=== PATIENT | male | born 1970 | race Hispanic/Latino ===

== ENCOUNTER 2017-04-04 09:43 | Emergency (ER) | payer MEDICAID, OTHER ==
[2017-04-04 09:44] VITALS: BMI 37.6
[2017-04-04 10:38] VITALS: RESP 20; TEMP 98.3; O2SAT 98
--- NOTE | 2017-04-04 11:16 | ED PDOC ---
Arrival/HPI - General Chief Complaint: Abnormal Skin Integrity Time Seen by Provider: 04/04/17 09:55 Historian: Patient - History of Present Illness Narrative History of Present Illness (Text): 04/04/17 11:13 Patient reports injuring his right pinky finger at work today when he was removing a plow that was attached to a truck, incident occurred just prior to arrival. Otherwise: (-) other injury, (-) numbness. Patient is R hand dominant. Of note, patient reports old boxer fracture to the affected hand. Past Medical History - Provider Review Nursing Documentation Reviewed: Yes - Infectious Disease Hx of Infectious Diseases: None - Tetanus Immunization Tetanus Immunization: Up to Date - Past Medical History Past Medical History: No Previous - Pulmonary Hx Respiratory Disorders: No - Musculoskeletal/Rheumatological Hx Back Pain: Yes - Psychiatric Hx Depression: No Hx Emotional Abuse: No Hx Physical Abuse: No Hx Substance Use: No - Anesthesia Hx Anesthesia: No Hx Anesthesia Reactions: No Hx Malignant Hyperthermia: No - Suicidal Assessment Feels Threatened In Home Enviroment: No Family/Social History - Physician Review Nursing Documentation Reviewed: Yes Family/Social History: No Known Family HX Smoking Status: Never Smoked Hx Alcohol Use: Yes Hx Substance Use: No Hx Substance Use Treatment: No Allergies/Home Meds Allergies/Adverse Reactions: Allergies No Known Allergies Allergy (Verified 07/17/15 10:01) Review of Systems - Review of Systems Constitutional: Normal. absent: Fatigue, Weight Change, Fevers Musculoskeletal: Normal, Arthralgias. absent: Back Pain, Neck Pain Skin: Normal. absent: Rash, Pruritis, Skin Lesions Physical Exam - Physical Exam Narrative Physical Exam (Text): 04/04/17 11:15 GENERAL APPEARANCE: Patient is awake, alert, oriented x 3, in no acute distress. SKIN: Warm, (-) rash, (-) lesions. UPPER EXTREMITY: (+) 1 cm laceration to the volar aspect of the R 5th PIP, with mild tenderness, (-) swelling, (-) ecchymosis; (-) crepitus, (-) deformity. Finger is held in extension, unable to flex the affected finger. (- ) distal neurovascular deficit. 2 point discrimination intact. Remainder of hand, digits and wrist: (-) injury. Vital Signs Temp Pulse Resp BP Pulse Ox 04/04/17 10:34 98.3 F 84 20 135/65 98 Medical Decision Making ED Course and Treatment: 04/04/17 11:16 46 yo M sustained a laceration to the R 5th finger. XR R 5th finger ordered. Patient is refusing analgesic medication at this time. Also states that he is UTD with tetanus. XR right fifth digit: Chronic deformity noted to the mid and distal phalanx, no fracture, no dislocation, as read by PA Patient advised that official radiology read of XR is still pending and will call the patient if there is any discrepancy within 24 hours. X-ray results discussed with the patient in great detail. The wound is right fifth digit. The wound was copiously irrigated with normal saline. The wound was prepped and draped in the normal sterile fashion. The wound was explored for foreign bodies and none were found. The wound was anesthetised using lidocaine 1%. The edges were reapproximated using 2, 5-0 Prolene. Bleeding was well controlled and the patient tolerated the procedure well. Clean dressing applied by PA. Ortho-Glass finger splint applied. Based on history, exam and diagnostic results plan will be for outpatient follow -up with workman's comp. Patient states he fully agrees with and understands discharge instructions. States that he agrees with the plan and disposition. Verbalized and repeated discharge instructions and plan. I have given the patient opportunity to ask any additional questions. Follow up with workmen's comp in 1-2 days without fail. Advised to take medication as prescribed. Return to the emergency room at any time for any new or worsening symptoms. - RAD Interpretation Radiology Orders: 04/04/17 11:01 HAND RIGHT 5TH DIGIT (FINGER) [RAD] Stat - PA / [employer]CH[employer]IC / Resident Statement MD/DO has reviewed & agrees with the documentation as recorded. Disposition/Present on Arrival - Present on Arrival Any Indicators Present on Arrival: No History of DVT/PE: No History of Uncontrolled Diabetes: No Urinary Catheter: No History of Decub. Ulcer: No History Surgical Site Infection Following: None - Disposition Have Diagnosis and Disposition been Completed?: Yes Diagnosis: Finger laceration Disposition: HOME/ ROUTINE Disposition Time: 12:34 Patient Plan: Discharge Condition: GOOD Discharge Instructions (ExitCare): Laceration (ED), Acute Wound Care (ED) Print Language: SYRIAC Additional Instructions: Thank you for letting us take care of you today. You were treated for finger laceration. The emergency medical care you received today was directed at your acute symptoms. If you were prescribed any medication, please fill it and take as directed. It may take several days for your symptoms to resolve. Return to the Emergency Department if your symptoms worsen, do not improve, or if you have any other problems. Please contact workman's comp in 2 days for re-evaluation and follow up. Bring any paperwork you were given at discharge with you along with any medications you are taking to your follow up visit. Our treatment cannot replace ongoing medical care by a primary care provider (PCP) outside of the emergency department. Thank you for allowing the [facility] team to be part of your care today. Prescriptions: Cephalexin [Keflex] 500 mg PO Q6 #28 capsule Forms: WORK NOTE
--- NOTE | 2017-04-04 12:22 | RAD ---
PROCEDURE: Right Hand Radiographs. HISTORY: trauma COMPARISON: None. FINDINGS: BONES: There is an old fracture deformity of the 5th metacarpal JOINTS: Normal. No osteoarthritic changes. SOFT TISSUES: Normal. OTHER FINDINGS: None. IMPRESSION: No acute fracture
[2017-04-04 13:31] VITALS: BP 128/64; PULSE 80
== END 2017-04-04 13:31 | disposition home or self-care (01) ==
LOC: ED 09:43
DX: S61.216A Laceration without foreign body of right little finger without damage to nail, initial encounter (principal); W45.8XXA Other foreign body or object entering through skin, initial encounter; Y93.89 Activity, other specified; Y92.69 Other specified industrial and construction area as the place of occurrence of the external cause; Y99.0 Civilian activity done for income or pay

== ENCOUNTER 2018-09-24 19:52 | Emergency (ER) | payer BC, OTHER ==
[2018-09-24 19:53] VITALS: BMI 37.6
[2018-09-24 20:07] VITALS: TEMP 98.3
[2018-09-24 20:28] LABS: BASO # 0.03 K/mm3 (0.0-2.0); BASO % 0.3 % (0.0-3.0); EOS # 0.3 (0.0-0.7); EOS % 3.4 % (1.5-5.0); GRAN # 4.83 (1.4-6.5); GRAN % 56.1 % (50.0-68.0); HEMOGLOBIN 15.4 g/dL (14.0-18.0); LYMPH # 3.1 (1.2-3.4); MEAN CELL VOLUME 86.8 fl (80.0-105.0); MEAN CORPUSCULAR HEMOGLOBIN 29.8 pg (25.0-35.0); MEAN CORPUSCULAR HGB CONC 34.3 g/dl (31.0-37.0); MEAN PLATELET VOLUME 9.3 fl (7.0-11.0); MONO # 0.4 (0.1-0.6); MONO % 4.2 % (1.0-6.0); RBC 5.17 10^6/uL (3.5-6.1); RED CELL DISTRIBUTION WIDTH 13.2 % (11.5-14.5); WHITE BLOOD COUNT 8.6 10^3/uL (4.5-11.0)
[2018-09-24 20:38] LABS: ALB/GLOB RATIO 1.4 (1.1-1.8); ALBUMIN 4.7 g/dL (3.0-4.8); ALT/SGPT 42 U/L (7-56); AST/SGOT 40 U/L (17-59); BLOOD UREA NITROGEN 20 mg/dL (7-21); CALCIUM 9.4 mg/dL (8.4-10.5); GFR NON-AFRICAN AMERICAN > 60
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
[2018-09-24 20:49] LABS: TROPONIN I < 0.01 ng/mL
[2018-09-24] MEDS ORDERED: Sodium Chloride 0.9% 1,000 ML IV STA (20:58)
[2018-09-24] MEDS ORDERED: Labetalol 5 mg/ml Inj 20ML IV STA (21:08)
[2018-09-24 21:52] VITALS: RESP 18
[2018-09-24 22:45] VITALS: BP 142/83; PULSE 89; O2SAT 97
--- NOTE | 2018-09-25 09:10 | RAD ---
Date of service: 09/24/2018 HISTORY: chest pain COMPARISON: No prior. FINDINGS: LUNGS: No active pulmonary disease. PLEURA: No significant pleural effusion identified, no pneumothorax apparent. CARDIOVASCULAR: No atherosclerotic calcification present Normal. OSSEOUS STRUCTURES: No significant abnormalities. VISUALIZED UPPER ABDOMEN: Normal. OTHER FINDINGS: None. IMPRESSION: No active disease.
--- NOTE | 2018-09-25 10:27 | CARD ---
APPROVED REPORT Date of service: 09/24/2018 EKG Measurement Heart [id number] <Conclusion> Sinus tachycardia NSSTW changes Q in lll
== END 2018-09-24 22:44 | disposition home or self-care (01) ==
LOC: ED 19:52
DX: R07.9 Chest pain, unspecified (principal)
CPT/HCPCS: 71045; 80053; 84484; 85025; 85378; 93005; 96360; 99284; J7030